=== PATIENT | male | born 1980 | race Caucasian/White ===

== ENCOUNTER 2017-03-11 22:00 | Emergency (ER) | payer BC, OTHER ==
[2017-03-11 22:10] VITALS: BP 140/76; PULSE 75; TEMP 97.5; BMI 33.7
--- NOTE | 2017-03-11 22:18 | PDOC ---
History of Present Illness - General Chief Complaint: Rash Stated Complaint: RASH RT NECK/CHEST Time Seen by Provider: 03/11/17 22:03 History Source: Patient Exam Limitations: No Limitations - History of Present Illness Initial Comments: 03/11/17 22:22 This is a 36-year-old male who comes in complaining of a rash on the right side of his neck and upper arm area. Patient denies any fevers or chills. Patient denies any history of similar rashes in the past. Patient said the rash is burning and he put some hydrocortisone on it but otherwise has not treated it with anything. PAST MEDICAL HISTORY: no significant history PAST SURGICAL HISTORY: no significant history FAMILY HISTORY: no pertinant history SOCIAL HISTORY: Pt lives with family and is employed. MEDICATIONS: reviewed ALLERGIES: As per nursing notes Review of Systems General: No fevers or chills, no weakness, no weight loss HEENT: No change in vision. No sore throat,. No ear pain CardioVascular: No chest pain or shortness of breath Respiratory:No cough, or wheezing. Gastrointestinal: no nausea, vomitting, diarrhea or constipation, No rectal bleeding Genitourinary: No dysuria, hematuria, or frequency Musculoskeletal: No joint or muscle pain or swelling Neurologic: No headache, vertigo, dizziness or loss of consciousness Psychiatric: nor depression Skin: Rash as per history of present illness Endocrine: no increased thirst or abnormal weight change Allergic: no skin or latex allergy All other systems reviewed and normal GENERAL: The patient is awake, alert, and fully oriented, in no acute distress. HEAD: Normal with no signs of trauma. EYES: Pupils equal, round and reactive to light, extraocular movements intact, sclera anicteric, conjunctiva clear. EXTREMITIES: Normal range of motion, no edema. NEUROLOGICAL: Normal speech, normal gait. grossly intact PSYCH: Normal mood, normal affect. SKIN: Warm, Dry, normal turgor, there is a patchy vesicular rash in a dermatomal distribution on the right side of the neck and upper arm. Assessment and plan: This is a 36-year-old male who comes in with a rash that is in a dermatomal distribution and has the appearance of herpes zoster. Patient started on acyclovir and told he can also put Caladryl lotion on it. Patient discharged home Past History - Past Medical History Allergies/Adverse Reactions: Allergies Allergy/AdvReac Type Severity Reaction Status Date / Time No Known Allergies Allergy Verified 02/01/15 14:14 Home Medications: Ambulatory Orders Ibuprofen 800 mg PO TID #25 tablet 02/01/15 Acyclovir [Zovirax -] 800 mg PO 5XD #35 tablet 03/11/17 - Suicide/Smoking/Psychosocial Hx Smoking History: Never smoked Hx Alcohol Use: Yes Drug/Substance Use Hx: No Substance Use Type: Alcohol *DC/Admit/Observation/Transfer Diagnosis at time of Disposition: Shingles Qualifiers: Herpes zoster complications: without complications Qualified Code(s): B02.9 - Zoster without complications - Discharge Dispostion Disposition: HOME Condition at time of disposition: Stable Admit: No - Prescriptions Prescriptions: Acyclovir [Zovirax -] 800 mg PO 5XD #35 tablet - Referrals - Patient Instructions Printed Discharge Instructions: DI for Shingles Additional Instructions: Take acyclovir one tablet 5 times a day for 7 days. You can put Caladryl lotion on it as directed on the bottle it is over-the- counter. Return to the emergency department immediately with ANY new, persistent or worsening symptoms. Continue any medications as previously prescribed by your physician. You should follow up with your primary doctor as soon as possible regarding today's emergency department visit. . Please make sure your doctor reviews the results of your emergency evaluation. Thank you for coming to the Emergency Department today for your care. It was a pleasure to see you today. Please note that your evaluation is INCOMPLETE until you follow-up with your doctor. - Post Discharge Activity
[2017-03-11] MEDS ORDERED: ACYCLOVIR 400 MG TABLET PO ONE (22:19)
== END 2017-03-11 22:29 | disposition home or self-care (01) ==
LOC: FER 22:00
DX: B02.9 Zoster without complications (principal)
CPT/HCPCS: 99281-25

== ENCOUNTER 2020-02-10 18:30 | Emergency (ER) | payer BC | END 2020-02-10 20:02 | disposition home or self-care (01) | LOC: JVIRT 18:30 | DX: U07.1 COVID-19 (principal) | CPT/HCPCS: C9803; Q3014-GT; U0003 ==

== ENCOUNTER 2023-12-15 06:35 | Emergency (ER) | payer BC ==
[2023-12-15 06:51] VITALS: BP 132/88; PULSE 75; RESP 18; TEMP 98.7; BMI 26.9
== END 2023-12-15 08:09 | disposition home or self-care (01) ==
LOC: FER 06:35
DX: L76.21 Postprocedural hemorrhage of skin and subcutaneous tissue following a dermatologic procedure (principal)
CPT/HCPCS: 99282-25